=== PATIENT | female | born 1980 | race Caucasian/White ===

== ENCOUNTER 2016-09-19 18:52 | Emergency (ER) | payer OTHER ==
[2016-09-19 20:05] VITALS: BP 109/57
--- NOTE | 2016-09-19 20:31 | UC ---
Throat Pain/Nasal Henry HPI - HPI Summary HPI Summary: Nasal congestion starting about 2 days ago, ST since yesterday. 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 No fever, vomiting, cough, or rashes. - History of Current Complaint Chief Complaint: UCGeneralIllness Stated Complaint: SORE THROAT Time Seen by Provider: 09/19/16 20:09 Hx Obtained From: Patient Hx Last Menstrual Period: 09/18/16 ?: No Onset/Duration: Gradual Onset, Lasting Days Severity: Mild Cough: None Associated Signs & Symptoms: Positive: Nasal Discharge. Negative: Fever, Vomiting, Rash - Allergies/Home Medications Allergies/Adverse Reactions: Allergies Allergy/AdvReac Type Severity Reaction Status Date / Time No Known Allergies Allergy Verified 09/19/16 20:05 Home Medications: Home Medications Desipramine TAB* [Norpramin TAB*] 50 mg PO BEDTIME 09/19/16 [History Confirmed 09/19/16] PMH/Surg Hx/FS Hx/Imm Hx Respiratory History Of: Reports: Asthma - Surgical History Surgical History: None - Family History Known Family History: Positive: Respiratory Disease - Social History Occupation: Employed Full-time Alcohol Use: Occasionally Substance Use Type: None Smoking Status (MU): Never Smoked Tobacco Review of Systems Constitutional: Negative Skin: Negative Eyes: Negative ENT: Sore Throat, Nasal Discharge Respiratory: Negative Cardiovascular: Negative Gastrointestinal: Negative Genitourinary: Negative Motor: Negative Neurovascular: Negative Musculoskeletal: Negative Neurological: Negative Psychological: Negative All Other Systems Reviewed And Are Negative: Yes Physical Exam Triage Information Reviewed: Yes Appearance: Well-Appearing, No Pain Distress, Well-Nourished Vital Signs: Initial Vital Signs Temp 97.7 F 09/19/16 20:02 Pulse 89 09/19/16 20:02 Resp 16 09/19/16 20:02 BP 109/57 09/19/16 20:02 Pulse Ox 100 09/19/16 20:02 Vital Signs Reviewed: Yes Eye Exam: Normal Eyes: Positive: Conjunctiva Clear ENT: Positive: Pharyngeal erythema - injected, Nasal congestion, TMs normal. Negative: Tonsillar swelling, Tonsillar exudate Dental Exam: Normal Neck exam: Normal Neck: Positive: Supple, Nontender, No Lymphadenopathy Respiratory Exam: Normal Respiratory: Positive: Chest non-tender, Lungs clear, Normal breath sounds, No respiratory distress, No accessory muscle use Cardiovascular Exam: Normal Cardiovascular: Positive: RRR, No Murmur Musculoskeletal Exam: Normal Neurological Exam: Normal Psychological Exam: Normal Skin Exam: Normal Throat Pain/Nasal Course/Dx - Differential Dx/Diagnosis Provider Diagnoses: URI, likely viral Discharge - Discharge Plan Condition: Stable Disposition: HOME Patient Education Materials: Upper Respiratory Infection (ED) Referrals: Julianna Regan [Physician Technical Support Engineer] - If Needed Additional Instructions: Rapid strep negative. Call or return if you develop increasing fever, shortness of breath, chest pain , bloody sputum, or otherwise worsen. If you have not improved at all after several days, contact your primary care physician or return here.
== END 2016-09-19 20:30 | disposition home or self-care (01) ==
LOC: UCCORT 18:52
DX: J06.9 Acute upper respiratory infection, unspecified (principal)
CPT/HCPCS: 87651; 99211; G0463

== ENCOUNTER 2016-11-02 15:00 | Emergency (ER) | payer OTHER ==
[2016-11-02 16:45] VITALS: BP 119/64
--- NOTE | 2016-11-02 17:19 | UC ---
Respiratory Complaint HPI - HPI Summary HPI Summary: ONSET OVER A WEEK AGO WITH COLD SYMPTOMS. THREE DAYS AGO STARTED WITH SORE THROAT, PRODUCTIVE COUGH, LYARINGITIS. FEELS SOB WELL. HAS HX OF EXERCISE INDUCED ASTHMA. RAN OUT OF ALBUTEROL. CHILLS. NO FEVER. no sinus pain. doesnt feel like it's strep. no wheezing. cough feels tight. Here with her Sandhya. voice is diminished. - History of Current Complaint Chief Complaint: UC Stated Complaint: COUGH,SORE THROAT Time Seen by Provider: 11/02/16 16:39 Hx Last Menstrual Period: 10/10/16 - Allergies/Home Medications Allergies/Adverse Reactions: Allergies Allergy/AdvReac Type Severity Reaction Status Date / Time UNKNOW ALLERGEN Allergy Severe Anaphylatic Uncoded 11/02/16 16:38 Shock Home Medications: Home Medications traZODone TAB* [Desyrel TAB*] 300 mg PO BEDTIME 11/02/16 [History Confirmed ] PMH/Surg Hx/FS Hx/Imm Hx Previously Healthy: Yes Respiratory History Of: Reports: Asthma - Surgical History Surgical History: None - Family History Known Family History: Positive: Diabetes, Respiratory Disease - Social History Alcohol Use: Occasionally Substance Use Type: None Smoking Status (MU): Never Smoked Tobacco - Immunization History Most Recent Influenza Vaccination: FALL 2015 Review of Systems Constitutional: Negative Skin: Negative Eyes: Negative ENT: Other - loss of voice Respiratory: Cough Cardiovascular: Negative Gastrointestinal: Negative Genitourinary: Negative Motor: Negative Neurovascular: Negative Musculoskeletal: Negative Neurological: Negative Psychological: Negative All Other Systems Reviewed And Are Negative: Yes Physical Exam Triage Information Reviewed: Yes Appearance: No Pain Distress - sitting with blanket, voice is diminished, Well- Nourished Vital Signs: Initial Vital Signs Temp 97.8 F 11/02/16 16:38 Pulse 79 11/02/16 16:38 Resp 20 11/02/16 16:38 BP 119/64 11/02/16 16:38 Pulse Ox 100 11/02/16 16:38 Vital Signs Reviewed: Yes Eye Exam: Normal ENT: Positive: Pharynx normal - +PND, TMs normal, Muffled/hoarse voice, Other: - no sinus tenderness. Negative: Pharyngeal erythema, Tonsillar swelling, Tonsillar exudate Dental Exam: Normal Neck exam: Normal Neck: Positive: Supple, Nontender, No Lymphadenopathy Respiratory: Positive: Chest non-tender, Lungs clear, No respiratory distress, No accessory muscle use, Decreased breath sounds. Negative: Crackles, Rhonchi, Stridor, Wheezing Cardiovascular Exam: Normal Cardiovascular: Positive: RRR, No Murmur, Pulses Normal, Brisk Capillary Refill Abdominal Exam: Normal Abdomen Description: Positive: Nontender, Soft Musculoskeletal Exam: Normal Neurological Exam: Normal Psychological Exam: Normal Skin Exam: Normal UC Diagnostic Evaluation - Laboratory O2 Sat by Pulse Oximetry: 100 Respiratory Course/Dx - Course Course Of Treatment: laryngitis and diminished breath sounds. will benefit from prednisone which they are very agreeable with. We discusse risks of prednisone including but not limited to anxiety, agitation, insomnia, GI upset, elevated blood pressures and blood sugar readings, adrenal crisis and avascular necrosis of the hip. No evidence of any bacterial infection apparent at this time. - Differential Dx/Diagnosis Differential Diagnosis/HQI/PQRI: Asthma, Bronchitis, Laryngitis, Lower Resp Infection, Sinusitis Provider Diagnoses: laryngitis, bronchitis Discharge - Discharge Plan Condition: Stable Disposition: HOME Prescriptions: Albuterol HFA INHALER* [Ventolin HFA Inhaler*] 2 puff INH Q4H PRN #1 mdi PRN Reason: Cough Methylprednisolone [Medrol Dosepak 4 MG*] 4 mg PO DAILY #1 nick Patient Education Materials: Acute Bronchitis (ED), Laryngitis (ED) Referrals: Hina Montaño [Primary Care Provider] - 3 Days Additional Instructions: Lots of fluids and rest, especially voice rest. You can also use tylenol cold and sinus for any congestion.
== END 2016-11-02 17:28 | disposition home or self-care (01) ==
LOC: UCCORT 15:00
DX: J04.0 Acute laryngitis (principal); J40 Bronchitis, not specified as acute or chronic
CPT/HCPCS: 99212; G0463

== ENCOUNTER 2017-09-03 14:56 | Emergency (ER) | payer OTHER ==
--- NOTE | 2017-09-03 15:52 | UC ---
Nausea/Vomiting/Diarrhea HPI - HPI Summary HPI Summary: 37 year old female presents with severe RUQ pain. - History of Current Complaint Stated Complaint: VOMITTING,DIARRHEA Time Seen by Provider: 09/03/17 15:52 Hx Obtained From: Patient Hx Last Menstrual Period: 10/10/16 Onset/Duration: Sudden Onset Severity Initially: Moderate Severity Currently: Moderate Location: Discrete At: RUQ Character: Sharp, Cramping Aggravating Factor(s): Movement Alleviating Factor(s): Nothing - Allergies/Home Medications Allergies/Adverse Reactions: Allergies Allergy/AdvReac Type Severity Reaction Status Date / Time UNKNOW ALLERGEN Allergy Severe Anaphylatic Uncoded 09/03/17 15:59 Shock PMH/Surg Hx/FS Hx/Imm Hx Previously Healthy: Yes - Surgical History Surgical History: None - Family History Known Family History: Positive: Diabetes, Respiratory Disease - Social History Alcohol Use: Occasionally Substance Use Type: None Smoking Status (MU): Never Smoked Tobacco - Immunization History Most Recent Influenza Vaccination: FALL 2015 Review of Systems Constitutional: Negative Skin: Negative Eyes: Negative ENT: Negative Respiratory: Negative Cardiovascular: Negative Gastrointestinal: Abdominal Pain, Vomiting, Diarrhea, Nausea, Other - ruq pain Genitourinary: Negative Motor: Negative Neurovascular: Negative Musculoskeletal: Negative Neurological: Negative Psychological: Negative All Other Systems Reviewed And Are Negative: Yes Physical Exam Triage Information Reviewed: Yes Vital Signs Reviewed: Yes Eye Exam: Normal ENT Exam: Normal Dental Exam: Normal Neck exam: Normal Neck: Positive: 1 Respiratory Exam: Normal Cardiovascular Exam: Normal Abdomen Description: Positive: Splenomegaly - ruq pain Musculoskeletal Exam: Normal Neurological Exam: Normal Psychological Exam: Normal Skin Exam: Normal Naus/Vom/Diarrhea Course/Dx - Differential Dx/Diagnosis Provider Diagnoses: ruq pain Condition At Discharge: Stable Discharge - Discharge Plan Condition: Stable Disposition: OTHER Discharge Disposition Comment: patient suggested to go to the er for ruq pain Patient Education Materials: Acute Abdominal Pain (ED) Referrals: Hina Montaño [Primary Care Provider] - Additional Instructions: patient suggested to go to the er for ruq pain
[2017-09-03 16:02] VITALS: BP 104/54
== END 2017-09-03 16:06 ==
LOC: UCCORT 14:56
DX: R10.11 Right upper quadrant pain (principal)
CPT/HCPCS: 99212; G0463

== ENCOUNTER 2018-08-20 17:43 | Emergency (ER) | payer BC ==
[2018-08-20 18:17] VITALS: BP 108/64
--- NOTE | 2018-08-20 18:56 | UC ---
Throat Pain/Nasal Henry HPI - HPI Summary HPI Summary: Pt presents with c/o URI like symptoms, bilateral ear ache, ST nasal congestion , cough X 4-5 days. - History of Current Complaint Chief Complaint: UCRespiratory Stated Complaint: SORE THROAT, RIGHT EAR PAIN Time Seen by Provider: 08/20/18 18:06 Hx Obtained From: Patient Hx Last Menstrual Period: 08/11/18 ?: No Onset/Duration: Gradual Onset, Lasting Days, Still Present Severity: Moderate Pain Intensity: 7 Cough: Nonproductive Associated Signs & Symptoms: Positive: Nasal Discharge - Epiglottits Risk Factors Epiglottis Risk Factors: Negative - Allergies/Home Medications Allergies/Adverse Reactions: Allergies Allergy/AdvReac Type Severity Reaction Status Date / Time No Known Allergies Allergy Verified 08/20/18 18:17 Home Medications: Home Medications Ibuprofen TAB* [Advil TAB*] 600 mg PO Q6H PRN 08/20/18 [History Confirmed ] LORazepam [Ativan 1 MG TAB] 5 mg PO BEDTIME PRN 08/20/18 [History Confirmed ] Naltrexone TAB* 50 mg PO BEDTIME 08/20/18 [History Confirmed 08/20/18] Pindolol 10 mg PO BEDTIME 08/20/18 [History Confirmed 08/20/18] Venlafaxine ER (NF) [Effexor ER (NF)] 400 mg PO DAILY 08/20/18 [History Confirmed 08/20/18] traZODone TAB* [Desyrel TAB*] 300 mg PO BEDTIME 08/20/18 [History Confirmed ] PMH/Surg Hx/FS Hx/Imm Hx Previously Healthy: Yes - Surgical History Surgical History: Yes Surgery Procedure, Year, and Place: LEEP procedure - Family History Known Family History: Positive: Diabetes, Respiratory Disease - Social History Occupation: Employed Full-time Lives: With Family Alcohol Use: Occasionally Substance Use Type: None Smoking Status (MU): Never Smoked Tobacco Have You Smoked in the Last Year: No - Immunization History Most Recent Influenza Vaccination: FALL 2015 Review of Systems All Other Systems Reviewed And Are Negative: Yes Constitutional: Positive: Negative Skin: Positive: Negative Eyes: Positive: Negative ENT: Positive: Sore Throat, Ear Ache, Sinus Congestion Respiratory: Positive: Cough Cardiovascular: Positive: Negative Gastrointestinal: Positive: Negative Genitourinary: Positive: Negative Motor: Positive: Negative Neurovascular: Positive: Negative Musculoskeletal: Positive: Negative Neurological: Positive: Negative Psychological: Positive: Negative Is Patient Immunocompromised?: No Physical Exam Triage Information Reviewed: Yes Appearance: Ill-Appearing Vital Signs: Initial Vital Signs Temp 97.7 F 08/20/18 18:09 Pulse 70 08/20/18 18:09 Resp 15 08/20/18 18:09 BP 108/64 08/20/18 18:09 Pulse Ox 100 08/20/18 18:09 Vital Signs Reviewed: Yes Eye Exam: Normal ENT: Positive: Nasal congestion, TM bulging - bilateral Dental Exam: Normal Neck exam: Normal Respiratory Exam: Normal Cardiovascular Exam: Normal Musculoskeletal Exam: Normal Neurological Exam: Normal Psychological Exam: Normal Skin Exam: Normal Throat Pain/Nasal Course/Dx - Differential Dx/Diagnosis Differential Diagnosis/HQI/PQRI: Pharyngitis, Sinusitis, URI Provider Diagnosis: Viral syndrome, Acute pain of both ears Discharge - Sign-Out/Discharge Documenting (check all that apply): Patient Departure All imaging exams completed and their final reports reviewed: No Studies - Discharge Plan Condition: Stable Disposition: HOME Patient Education Materials: Decongestant/Expectorant (By mouth), Viral Syndrome (ED) Referrals: Hina Montaño [Primary Care Provider] - If Needed - Billing Disposition and Condition Condition: STABLE Disposition: Home
== END 2018-08-20 19:03 | disposition home or self-care (01) ==
LOC: UCCORT 17:43
DX: B34.9 Viral infection, unspecified (principal); H92.03 Otalgia, bilateral
CPT/HCPCS: 99211; G0463

== ENCOUNTER 2019-02-20 19:16 | Emergency (ER) | payer BC ==
--- OUTSIDE RECORDS SUMMARY | 2019-02-20 19:30 | XMS REPORT | Continuity of Care Document ---
:1980 External Reference #:[id number] Author Name Hina Montaño, RESEARCH PROGRAM COORDINATOR Address [address] [place] [address] Care Team Providers Name Role Phone Armando Montaño MD Care Team Information Manager Procurement Unavailable Payers Date Identification Numbers Payment Provider Subscriber Effective: 2018 Policy Number: [id number] [facility] Ppo Bruno Phillips PayID: [id number] [address] [address] [place] [address] Problems Active Problems Provider Date Multiple personality disorder Digiovanna, Hina, RESEARCH PROGRAM COORDINATOR Onset: 01/12/2019 Constipation Digiovanna, Hina, RESEARCH PROGRAM COORDINATOR Onset: 01/12/2019 Acne Digiovanna, Hina, RESEARCH PROGRAM COORDINATOR Onset: 01/12/2019 Allergic rhinitis Digiovanna, Hina, RESEARCH PROGRAM COORDINATOR Onset: 01/12/2019 Vitamin D deficiency Digiovanna, Hina, RESEARCH PROGRAM COORDINATOR Onset: 01/12/2019 Family History Date Family Member(s) Observation Comments Maternal Grandfather Cancer, Lung dx age 80 Social History Type Date Description Comments Sex Unknown Education Highest Level Completed Master's Degree Marital Status 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 ETOH Use Occasionally consumes alcohol Tobacco Use Start: Unknown Patient has never smoked Recreational Drug Use Denies Drug Use Smoking Status Reviewed: 01/22/19 Patient has never smoked Allergies, Adverse Reactions, Alerts Active Allergies Reaction Severity Comments Date NKDA 10/31/2017 Dust 12/20/2013 Cats 12/20/2013 Medications Active Medications SIG Qnty Indications Ordering Date Provider Trazodone HCL take two tablets F44.81 Digiovanna, 01/12/2019 100mg by mouth at [facility] Sant[facility] Tablets bedtime Bupropion 1 by mouth every 90tabs F44.81 Digiovanna, 01/12/2019 Hydrochloride ER (XL) am [facility] Santamaria 300mg Tablets ER 24HR Effexor XR 1 by mouth every 30caps F44.81 Digiovanna, 01/12/2019 150mg Caps day along with a [facility] Santamaria ER 24HR 75mg tab as well-325mg daily Albuterol Sulfate HFA Inhale 2 Puffs 42.5units J30.9 Manan Siddiqui, 01/12 By Mouth Every 4 DO 108(90Base) mcg/Act Hours as Needed Aerosol Vitamin D-3 1 by mouth every E55.9 Digiovanna, 01/12/2019 5000Unit day [facility] Santamaria Tablets Multivitamin Adult daily Digiovanna, 01/12/2019 [facility] Santamaria Tablets Magnesium 1 by mouth every 90tabs Digiovanna, 01/12/2019 400mg Tablets day at night [facility] Santamaria Epipen 2-Nithin use as directed 2units J30.9 Manan Siddiqui, 02/28/2015 for allergic DO 0.3mg/0.3ML Solution reaction Auto-Inject Alprazolam 1 by mouth daily F44.81 Unknown 0.5mg as needed for Tablets panic attack Effexor XR 1 by mouth every F44.81 Unknown 75mg Caps ER day along with a 24HR 150mg tab as well-325mg daily Gabitril 1 tab PO twice F44.81 Bezerganian, 4mg Tablets daily History Medications Tamiflu 1 by mouth once a 10caps Sabra, 12/23/2016 - 75mg Capsules day x10 days SHIRLEY Santamaria 01/02/2017 Fluticasone Propionate 1 spray each 1units J06.9 Sabra, 11/05/2016 - nostril daily SHIRLEY Santamaria 10/31/2017 50mcg/Act Suspension Singulair 1 By Mouth Daily 90tabs J30.9 Sabra, 03/08/2016 - 10mg Tablets SHIRLEY Santamaria 10/31/2017 Clindamycin Apply to affected 100gm L70.9 Manan Siddiqui, 05/23/2015 - Phos-Benzoyl Perox area daily, can DO 09/09/2016 1-5% increase to bid Gel Mirtazapine 1 po qhs 10tabs 300.14 Manan Siddiqui, 04/11/2015 - 7.5mg Tablets DO 05/23/2015 Ventolin HFA 2 puffs every 4 1units J30.9 Manan Siddiqui, 02/28/2015 - 108(90Base) hours as needed DO 01/12/2019 mcg/Act Aerosol Trazodone HCL take Two tablet Unknown - 100mg by mouth at 06/17/2016 Tablets bedtime Fina Fluoxetine HCL 80 mg every day F44.81 [place], - 20mg DR Darinel Cunha MD 10/31/2017 Tablets Bupropion HCL 1 by mouth a day Virginia Tena - 100mg 03/08/2016 Tablets Bupropion HCL ER one tab twice F44.81 Unknown - (Smoking Det) daily - 10/31/2017 150mg Lngbart Tablets ER 12HR Livaplex OTC Z68.30 Unknown - 10/31/2017 Hepatrophin Unknown - 06/17/2016 Adrenal Complx Z68.30 Unknown - 10/31/2017 Multizyme Z68.30 Unknown - 10/31/2017 Organically Bound Z68.30 Unknown - Minerals 10/31/2017 Adrenal Dessicated Unknown - 06/17/2016 Colax Digestion K59.00 Unknown - 10/31/2017 Seroquel 1 by mouth every 30tabs Manan Siddiqui, - 200mg Tablets night at bedtime DO 09/16/2016 Diazepam 1 by mouth twice F44.81 [place], - 5mg Tablets a day carisa Cunha MD 10/31/2017 Trazodone HCL 2 by mouth every F44.81 [place], - 150mg night at bedtime MD Alphonse 01/12/2019 Tablets Bupropion HCL ER (SR) 2 by mouth every F44.81 Unknown - day 01/12/2019 200mg Tablets ER 12HR Venlafaxine HCL 1 by mouth every Unknown - 100mg day 12/09/2018 Tablets Ativan 1 by mouth prn Unknown - 2mg Tablets 01/12/2019 Naltrexone HCL 1 by mouth every F44.81 Unknown - 50mg day 01/22/2019 Tablets Gabitril Take 1/2 tab by F44.81 Unknown - 12mg Tablets mouth bid 01/22/2019 Ventolin HFA 2 puffs every 4 1units Manan Siddiqui, - 108mcg/Act hours as needed DO 02/28/2015 Aerosol for cough or sob Epinephrine Unknown - 0.3mg/0.3ML 02/28/2015 Solution Auto-Inject [facility] Fiber Laxative take 1 tablet by Unknown - 625mg mouth bid 04/08/2016 Tablets Docusate Sodium & 2 PO bid Unknown - Senna Stimulant 02/28/2015 Laxative/Stool Softener 8.6-50mg Tablets Levocetirizine 1 po qd 30tabs Unknown - Dihydrochloride 02/28/2015 5mg Tablets Vitamin B-12 1 po qd Unknown - 1000mcg 08/30/2015 Tablets Sub Melatonin 1 po daily Unknown - 3mg Tablets 02/28/2015 Mirtazapine Unknown - 7.5mg Tablets 04/11/2015 Prazosin HCL Unknown - 1mg Capsules 02/28/2015 Bupropion HCL 1 by mouth in the Unknown - 100mg morning 02/28/2015 Tablets Vitamin B-6 1 by mouth every 30tabs Unknown - 100mg Tablets day 08/30/2015 Prazosin HCL 2 by mouth every Unknown - 2mg Capsules day 04/11/2015 Melatonin use as directed Unknown - 10mg Capsules at hs. 06/17/2016 Senna S 2 tab twice a day Unknown - Tablets 06/17/2016 Venlafaxine HCL ER 1 by mouth every Unknown - 75mg day 04/11/2015 Caps ER 24HR Vitamin D3 1 by mouth every Unknown - 5000Unit day 04/08/2016 Capsules Biotin 1 by mouth every Unknown - Tablets day 08/30/2015 Multi Adult Gummies 2 by mouth every Unknown - day 04/08/2016 Chewtabs Doxepin HCL 300.14 Unknown - 10mg Capsules 08/30/2015 Immunizations CPT Code Status Date Vaccine Reaction Lot # [id number] Given 09/11/2018 Flu Vaccine NOS Given at [facility], [address], [place] [address] Given 10/07/2016 Tdap (Adacel) Ages 7 And [id number] Above Only Q2037 Given 06/02/2016 Fluvirin Immunization Q2037 Given 05/11/2015 Fluvirin Immunization 30553 Given 05/11/2015 Influenza Vaccine Preservative Free 6-35 Months Of Age [address] Refused 10/31/2017 Influenza Vac, Quadrivalent, Split, 0.5mL Dosage, Im Use Vital Signs Date Vital Result Comment 01/22/2019 12:59pm Body Temperature 98.7 F tympanic Heart Rate 80 /min BP Systolic 130 mmHg BP Diastolic 76 mmHg Respiratory Rate 16 /min 01/12/2019 2:21pm Weight 192.38 lb Heart Rate 80 /min BP Systolic 118 mmHg BP Diastolic 68 mmHg Respiratory Rate 16 /min Height 62.75 inches 5'2.75" BMI (Body Mass Index) 34.3 kg/m2 10/31/2017 9:48am Weight 188.00 lb Heart Rate 72 /min BP Systolic 110 mmHg BP Diastolic 68 mmHg Respiratory Rate 14 /min Height 62.75 inches 5'2.75" BMI (Body Mass Index) 33.6 kg/m2 Last Menstrual Period [id number] 11/05/2016 9:53am Body Temperature 98.7 F Weight 178.00 lb Heart Rate 68 /min BP Systolic 108 mmHg BP Diastolic 70 mmHg Respiratory Rate 18 /min Height 62.75 inches 5'2.75"06/23 O2 % BldC Oximetry 100 % Ra BMI (Body Mass Index) 31.8 kg/m2 10/07/2016 10:01am Weight 172.00 lb Heart Rate 70 /min BP Systolic 118 mmHg BP Diastolic 72 mmHg Respiratory Rate 18 /min Height 62.75 inches 5'2.75"06/23 BMI (Body Mass Index) 30.7 kg/m2 06/17/2016 8:25am Weight 172.00 lb Heart Rate 74 /min BP Systolic 110 mmHg BP Diastolic 70 mmHg Respiratory Rate 18 /min Height 62.75 inches 5'2.75"06/23 BMI (Body Mass Index) 30.7 kg/m2 04/08/2016 1:10pm Weight 178.00 lb Heart Rate 68 /min BP Systolic 118 mmHg BP Diastolic 68 mmHg Respiratory Rate 18 /min Height 62.75 inches 5'2.75" BMI (Body Mass Index) 31.8 kg/m2 03/08/2016 8:43am Weight 182.00 lb Heart Rate 72 /min BP Systolic 120 mmHg BP Diastolic 72 mmHg Respiratory Rate 16 /min 12/08/2015 8:23am Heart Rate 74 /min BP Systolic 136 mmHg BP Diastolic 70 mmHg Respiratory Rate 18 /min Height 62.5 inches 5'2.50" 11/03/2015 12:58pm Weight 182.00 lb Heart Rate 72 /min BP Systolic 112 mmHg BP Diastolic 60 mmHg Respiratory Rate 18 /min 08/30/2015 8:28am Weight 182.00 lb Heart Rate 68 /min BP Systolic 112 mmHg BP Diastolic 68 mmHg Respiratory Rate 18 /min 05/23/2015 8:39am Weight 185.00 lb Heart Rate 72 /min BP Systolic 112 mmHg BP Diastolic 68 mmHg Respiratory Rate 18 /min 04/11/2015 1:12pm Weight 183.00 lb Heart Rate 60 /min BP Systolic 114 mmHg BP Diastolic 72 mmHg Respiratory Rate 18 /min Height 62.75 inches 5'2.75" (02/2015) BMI (Body Mass Index) 32.7 kg/m2 02/28/2015 8:24am Weight 184.00 lb Heart Rate 70 /min BP Systolic 118 mmHg BP Diastolic 62 mmHg Respiratory Rate 18 /min Height 62.75 inches 5'2.75" (02/2015) BMI (Body Mass Index) 32.9 kg/m2 08/29/2014 8:46am Weight 197.00 lb Heart Rate 68 /min BP Systolic 118 mmHg BP Diastolic 62 mmHg Respiratory Rate 17 /min Height 62.5 inches 5'2.50" (12/2013) 06/01/2014 9:01am Body Temperature 98.8 F Weight 185.00 lb Heart Rate 64 /min BP Systolic 126 mmHg BP Diastolic 70 mmHg Respiratory Rate 18 /min Height 62.5 inches 5'2.50" (12/2013) 04/27/2014 8:50am Weight 176.00 lb Heart Rate 64 /min BP Systolic 116 mmHg BP Diastolic 60 mmHg Respiratory Rate 18 /min Height 62.5 inches 5'2.50" (12/2013) 03/04/2014 8:35am Weight 181.00 lb Heart Rate 72 /min BP Systolic 102 mmHg BP Diastolic 68 mmHg Respiratory Rate 18 /min Height 62.5 inches 5'2.50" (12/2013) 12/20/2013 10:28am BP Systolic 116 mmHg laying, 108/70 sitting, 106/68 standing BP Diastolic 74 mmHg laying, 108/70 sitting, 106/68 standing 12/20/2013 10:28am Weight 184.00 lb Heart Rate 56 /min BP Systolic 128 mmHg BP Diastolic 70 mmHg Respiratory Rate 18 /min Height 62.5 inches 5'2.50" (12/2013) Results Test Date Facility Test Result H/L Range Note Arthritis 01/22/2019 [facility] Rheumatoid Factor <pending> Panel-FCMG Quant Esr-[facility]CMG <pending> CRP,High Sensitivity <pending> Uric Acid-FCMG <pending> Laboratory test finding 01/22/2019 [facility] Lyme Disease By PCR <pending> - RL Laboratory test finding 10/31/2017 [facility] Vitamin D 25 25 ng/mL Low 30- 100 1 Hydroxy TSH 1.71 uIU/mL 0.35-4.94 Magnesium 1.9 mg/dL 1.5-2.7 Basic (BMP) 10/31/2017 [facility] Sodium 138 mmol/L 135-146 2 Potassium 4.4 mmol/L 3.5-5.2 Chloride# 103 mmol/L 97-110 3 Carbon Dioxide 29 mmol/L 24-34 Glucose 90 mg/dL 70-105 BUN 12 mg/dL 6-26 Creatinine 0.8 mg/dL 0.5-1.4 Calcium 9.3 mg/dL 8.5-10.2 Non Cheryle Egfr >60 >60 4 Cheryle Egfr >60 >60 5 Anion Gap 6 mmol/L 5-15 6 CBC With Auto Diff 10/31/2017 [facility] WBC 5.2 K/uL 4.1-11.0 RBC 4.07 M/uL 4.00-5.40 Hemoglobin 13.0 gm/dL 12.0-16.0 Hematocrit 37.4 % 36.0-47.0 MCV 92.0 fL 80.0-97.0 MCH 31.9 pg 27.0-32.0 MCHC 34.7 g/dL 32.0-36.0 RDW 12.7 % 11.5-14.5 PLT Count 204 K/ul 140-400 MPV 8.2 FL 7.1-10.7 Neutrophil 63.9 % 35.0-75.0 Lymphocyte 25.7 % 16.0-52.0 Monocyte 8.4 % 2.0-10.0 Eosinophil 1.4 % 0.0-5.0 Basophil 0.6 % 0.0-4.0 Abs Neutrophils 3.3 K/uL 2.1-8.0 Abs Lymphocytes 1.3 K/uL 0.8-5.5 Abs Monocytes 0.4 K/uL 0.1-1.0 Abs Eosinophils 0.1 K/uL 0.0-0.5 Abs Basophils 0.0 K/uL 0.0-0.3 Laboratory test finding 11/03/2015 [facility] Vit D 1 25 Dihydroxy 65.6 7 Ebv Evaluation - 11/03/2015 [facility] Ebv Vca Igg @ POSITIVE (Neg) 8 Ebv Vca Igm @ NEGATIVE (Neg) Ebv Early Ag Igg @ NEGATIVE (Neg) Ebv Nuclear Ag Igg @ POSITIVE (Neg) 9 Celiac Disease Panel-RL 11/03/2015 [facility] Gliadin Peptide Iga 3 [arb'U] (<20) 10 Gliadin Peptide Igg 2 [arb'U] (<20) 11 Iga @ 95 mg/dL (71-374) Transglutaminase Iga 2 [arb'U] (<20) 12 Transglutaminase Igg 2 [arb'U] (<20) 13 Laboratory test finding 11/03/2015 [facility] Vitamin B12 858 pg/mL 180- 914 TSH 1.70 uIU/mL 0.35-4.94 Comprehensive Metabolic (CMP) 11/03/2015 [facility] Sodium 135 mmol/L 134- 142 Potassium 4.2 mmol/L 3.5-5.2 Chloride 104 mmol/L 97-109 Carbon Dioxide 26 mmol/L 24-34 Glucose 97 mg/dL 70-105 BUN 12 mg/dL 6-26 Creatinine 0.8 mg/dL 0.5-1.4 Calcium 8.9 mg/dL 8.5-10.2 Total Protein 6.8 g/dL 6.0-8.0 Albumin 4.2 g/dL 3.6-4.9 Globulin 2.6 g/dL 2.0-3.5 A/G Ratio 1.6 Ratio 1.0-2.2 Total Bilirubin 0.5 mg/dL 0.1-1.3 Alkaline Phosphatase 46 U/L 24-140 Alt 20 U/L 3-42 Ast 16 U/L 8-42 Anion Gap 9 mmol/L 6-14 Cheryle Egfr >60 >60 14 Non Cheryle Egfr >60 >60 15 [facility] K/uL 4.1-11.0 RBC 4.17 M/uL 4.00-5.40 Hemoglobin 13.1 gm/dL 12.0-16.0 Hematocrit 39.1 % 36.0-47.0 MCV 93.7 fL 80.0-97.0 MCH 31.4 pg 27.0-32.0 MCHC 33.5 g/dL 32.0-36.0 RDW 12.2 % 11.5-14.5 PLT Count 213 K/ul 140-400 Neutrophil 63.8 % 35.0-75.0 Lymphocyte 26.7 % 16.0-52.0 Monocyte 7.3 % 2.0-10.0 Eosinophil 1.3 % 0.0-5.0 Basophil 0.9 % 0.0-4.0 Abs Neutrophils 3.1 K/uL 2.1-8.0 Abs Lymphocytes 1.3 K/uL 0.8-5.5 Abmon 0.4 K/uL 0.1-1.0 Abs Eosinophils 0.1 K/uL 0.0-0.5 Abs Basophils 0.0 K/uL 0.0-0.3 Drugs Of Abuse-Urine 04/10/2015 [facility] Amphetamines ( Urine) Negative Screen 7 (315)- - Barbiturates (Urine) Negative Benzodiazepines (Urine) Negative Cannabinoids (Urine) Negative Cocaine Metabolite (Urine) Negative Methadone (Urine) Negative Opiates (Urine) Negative Urine Cutoffs * 16 Laboratory test finding 12/28/2013 [email or web address] Import Free T4 0.67 ng/dL Low 0.71-1.85 Rapid Plasma Reagin Nonreactive Nonreactive 17 Thyroid Stim Hormone 1.02 uIU/mL 0.49-4.67 LDL Cholesterol Profile 12/28/2013 [email or web address] Import Cholesterol 178 mg/dL 120-200 HDL Cholesterol 41 mg/dL 29-83 LDL-Cholesterol 110 mg/dL 62-185 Triglycerides 136 mg/dL 16-231 Laboratory test 12/26/2013 [email or web address] Import Amphetamines (Urine) Negative finding Barbiturates (Urine) Negative Benzodiazepines (Urine) Positive High Cannabinoids (Urine) Negative Cocaine Metabolite (Urine) Negative Methadone (Urine) Negative Opiates (Urine) Negative Please Note # 18 Urine Cutoffs * 19 Urine Screen 12/26/2013 [email or web address] Import Urine Bilirubin - Negative Negative Dipstick Urine Blood Negative Negative Urine Clarity Clear Clear Urine Color Yellow Yellow Urine Glucose - Dipstick Negative mg/dL Negative Urine Ketone Negative mg/dL Negative Urine Leuk Esterase Negative Negative Urine Nitrite - Dipstick Negative Negative Urine PH 6.0 Low 6.5-7.5 Urine Protein - Dipstick Negative mg/dL Negative Urine Specific [place] >=1.030 1.010-1.030 Urine Urobilinogen - Dipstick 0.2 E.U./dL 0.2-1.0 Laboratory test 12/26/2013 [facility] [employer] [facility] Import Acetaminophen < 2.0 ug/mL Low 10.0-30.0 20 finding Alb/Glob 1.1 ratio Albumin 3.7 g/dL 3.5-5.0 Alkaline Phosphatase 78 U/L 50-136 Anion Gap 14 mEq/L 8-16 BUN 6 mg/dL 5-23 BUN/Creat 10.0 ratio Bilirubin,Total 0.1 mg/dL Low 0.2-1.2 Calcium 8.2 mg/dL Low 8.5-10.1 Carbon Dioxide 22 mEq/L 18-29 Chloride 108 mmol/L High 98-107 Creatinine 0.6 mg/dL 0.5-1.4 Ethyl Alcohol 18.0 mg/dL 0.0- Globulin 3.3 g/dL 1.9-4.3 Glom Filtration Rate, Estimate >60 mL/min >60 Glucose 86 mg/dL 76-115 If >60 mL/min >60 21 Potassium 3.5 mmol/L 3.5-5.1 SGPT/Alt 31 U/L 30-65 Salicylate < 1.7 mg/dL Low 2.8-20.0 22 Sgot/Ast 19 U/L 16-40 Sodium 140 mmol/L 136-145 Total Protein 7.0 g/dL 6.3-8.0 CBS W/Automated Diff 12/26/2013 [facility] Import Bas% 0.3 % 0.0-1.1 Baso # 0.02 K/uL 0.0-0.1 Eo% 2.1 % 0.0-6.6 Eos # 0.12 K/uL 0.0-0.5 Hematocrit 36.4 % 36.0-46.1 Hemoglobin 12.3 gm/dL 11.6-15.8 Lymph # 2.44 K/uL 0.8-3.4 Lymph % 42.7 % 17.0-46.1 Mean Cell Volume 87.9 fl 80.9-99.0 Mean Corpuscular HGB 29.7 pg 25.9-32.7 Mean Corpuscular HGB Conc 33.8 g/dL 30.8-34.3 Mean Platelet Volume 10.5 fL 8.9-12.4 [place] # 0.46 K/uL 0.3-0.9 [place] % 8.0 % 4.3-13.2 Neut# 2.68 K/uL 1.0-7.0 Neut% 46.9 % 40.4-72.8 Platelet Count 219 K/uL 155-360 Red Blood Count 4.14 M/uL 3.90-5.40 Red Cell Distri Width %CV 13.2 % 11.7-14.4 Red Cell Distri Width SD 40.6 fl 3-47 White Blood Count 5.7 K/uL 3.1-10.7 1 Clinical Guidelines for recommended serum 25(OH)Vitamin D Deficient at less than 20 ng/mL Insufficient at 20 to <30 ng/mL Sufficient at 30-100 ng/mL Toxicity at greater than 100 ng/mL 2 Updated reference range on new analyzer 3 Updated reference range on new analyzer 4 Concerning GFR Guidelines: Normal function or mild renal disease, if clinically at risk: >/=60 mL/min Moderately decreased: 30-59 Severely decreased: 15-29 Renal failure: <15 Glomerular Filtration Rate (GFR) is estimated based on the MDRD equation, which assumes a steady state for creatinine as recommended by the National Kidney Disease Education Program in conjunction with the National Institutes of Health and the National Kidney Foundation. Clinical conditions in which it may be necessary to measure GFR by using clearance methods include extremes of age and body size, severe malnutrition or obesity, diseases of skeletal muscle, paraplegia or quadriplegia, vegetarian diet, rapidly changing kidney function, and calculation of the dose of potentially toxic drugs that are excreted by the kidneys. 5 Concerning GFR Guidelines for Americans: Normal function or mild renal disease, if clinically at risk: >/=60 mL/min Moderately decreased: 30-59 Severely decreased: 15-29 Renal failure: <15 6 Updated Reference Range -2017 7 Reference range: 19.9 to 79.3 Unit: pg/mL INTERPRETIVE INFORMATION: Vitamin D, 1,25-Dihydroxy This test is primarily indicated during patient evaluation for hypercalcemia and renal failure. A normal result does not rule out Vitamin D deficiency. The recommended test for diagnosing Vitamin D deficiency is Vitamin D 25-hydroxy. Performed by [facility], [address] [place] [id number] [email or web address], Ruel Gavin MD, Lab. Director Unless otherwise specified, testing performed by [facility] [address] [place] [address] 8 May indicate a current or previous infection. 9 May indicate a current or previous infection. Unless otherwise specified, testing performed by [facility] [address] [place] [id number] 10 INTERPRETATION OF RESULTS: < 20 UNITS NEGATIVE 20-30 UNITS WEAK POSITIVE > 30 UNITS MODERATE TO STRONG POSITIVE The following result was obtained with the [employer] QUANTA Lite Gliadin IgA II. Results obtained with other manufacturers' assay methods may not be used interchangeably. The magnitude of the reported IgA level cannot be correlated to an endpoint titer. 11 INTERPRETATION OF RESULTS: < 20 UNITS NEGATIVE 20-30 UNITS WEAK POSITIVE > 30 UNITS MODERATE TO STRONG POSITIVE The following result was obtained with the [employer] QUANTA Lite Gliadin IgG II. Results obtained with other manufacturers' assay methods may not be used interchangeably. The magnitude of the reported IgG levels cannot be correlated to an endpoint titer. 12 INTERPRETATION OF RESULTS: < 20 UNITS NEGATIVE 20-30 UNITS WEAK POSITIVE > 30 UNITS MODERATE TO STRONG POSITIVE The following result was obtained with the [employer] QUANTA Lite h-tTG IgA ZAID. Results obtained with other manufacturers' assay methods may not be used interchangeably. The magnitude of the reported IgA level cannot be correlated to an endpoint titer. Performed at [address] [place] [address] 13 INTERPRETATION OF RESULTS: < 20 UNITS NEGATIVE 20-30 UNITS WEAK POSITIVE > 30 UNITS MODERATE TO STRONG POSITIVE The following result was obtained with the [employer] QUANTA Lite h-tTG IgG ZAID. Results obtained with other manufacturers' assay methods may not be used interchangeably. The magnitude of the reported IgG levels cannot be correlated to an endpoint titer. Performed at [address] [place] [address] Unless otherwise specified, testing performed by [facility] [address] [place] [id number] 14 Concerning GFR Guidelines for Americans: Normal function or mild renal disease, if clinically at risk: >/=60 mL/min Moderately decreased: 30-59 Severely decreased: 15-29 Renal failure: <15 15 Concerning GFR Guidelines: Normal function or mild renal disease, if clinically at risk: >/=60 mL/min Moderately decreased: 30-59 Severely decreased: 15-29 Renal failure: <15 Glomerular Filtration Rate (GFR) is estimated based on the MDRD equation, which assumes a steady state for creatinine as recommended by the National Kidney Disease Education Program in conjunction with the National Institutes of Health and the National Kidney Foundation. Clinical conditions in which it may be necessary to measure GFR by using clearance methods include extremes of age and body size, severe malnutrition or obesity, diseases of skeletal muscle, paraplegia or quadriplegia, vegetarian diet, rapidly changing kidney function, and calculation of the dose of potentially toxic drugs that are excreted by the kidneys. 16 *THE SUBMITTED URINE SPECIMEN WAS SCREENED AT THE LISTED CUTOFFS DRUG CLASS INITIAL TEST LEVEL Amphetamines 1000 ng/mL Barbiturates 200 ng/mL Benzodiazepines 200 ng/mL Cannabinoids 50 ng/mL Cocaine Metabolite 300 ng/mL Methadone 300 ng/mL Opiates 300 ng/mL 17 PENDING; TEST PERFORMED ON MONDAYS AND THURSDAYS 18 #THIS URINE SPECIMEN SCREENED POSITIVE FOR ONE OF MORE DRUG CLASSES. POSITIVE FINDINGS ARE UNCONFIRMED. CONFIRMATORY TESTING IS SUGGESTED IF FINDINGS ARE UNEXPECTED. PLEASE CONTACT THE LABORATORY IF CONFIRMATORY TESTING IS DESIRED. 19 *THE SUBMITTED URINE SPECIMEN WAS SCREENED AT THE LISTED CUTOFFS DRUG CLASS INITIAL TEST LEVEL Amphetamines 1000 ng/mL Barbiturates 200 ng/mL Benzodiazepines 200 ng/mL Cannabinoids 50 ng/mL Cocaine Metabolite 300 ng/mL Methadone 300 ng /mL Opiates 300 ng/mL 20 POTENTIAL TOXICITY VARIES WITH TIME FROM INGESTION. PLEASE CONSULT APPROPRIATE NOMOGRAM. 21 Note: Persistent reduction for 3 months or more in an eGFR <60 mL/min/1.73 m2 defines CKD. Patients with eGFR values >/=60 mL/min/1.73 m2 may also have CKD if evidence of persistent proteinuria is present. The original MDRD equation for estimated GFR is not valid for patients less than 18 years of age. Additional information may be found at www.kdoqi.org. 22 ARTHRITIC THERAPEUTIC RANGE: 15-30 mg/dL POTENTIAL TOXICITY VARIES WITH TIME FROM INGESTION. PLEASE CONSULT APPROPRIATE NOMOGRAM. 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, RESEARCH PROGRAM COORDINATOR disorder K59.00 Constipation, unspecified L70.9 Acne, unspecified J30.9 Allergic rhinitis, unspecified E55.9 Vitamin D deficiency, unspecified Z68.34 Body mass index (BMI) 34.0-34.9, adult Office Visit 10/31/2017 9:45a PSYCHIATRIC Hina Montaño, F44.81 Dissociative identity RESEARCH PROGRAM COORDINATOR disorder K59.00 Constipation, unspecified Office Visit 11/05/2016 9:45a PSYCHIATRIC Hina Montaño, J06.9 Acute upper RESEARCH PROGRAM COORDINATOR respiratory infection, unspecified Office Visit 10/07/2016 10:00a PSYCHIATRIC Hina Montaño, Z23 Encounter for RESEARCH PROGRAM COORDINATOR immunization J30.9 Allergic rhinitis, unspecified F44.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 L70.9 Acne, unspecified K59.00 Constipation, unspecified Z68.30 Body mass index (BMI) 30.0-30.9, adult Office Visit 06/17/2016 8:30a PSYCHIATRIC Julianna Ko PA J30.9 Allergic rhinitis, unspecified F44.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 R21 Rash and other nonspecific skin eruption Office Visit 04/08/2016 1:15p PSYCHIATRIC Julianna Ko, Z72.4 Inappropriate diet and PA eating habits Office Visit 03/08/2016 8:45a PSYCHIATRIC Julianna Ko, F44.81 Dissociative identity PA disorder J30.9 Allergic rhinitis, unspecified Z72.4 Inappropriate diet and eating habits Office Visit 12/08/2015 8:30a PSYCHIATRIC Julianna Ko, F44.81 Dissociative identity PA disorder R53.83 Other fatigue J45.20 Mild intermittent asthma, uncomplicated Office Visit 11/03/2015 1:00p [facility] Julianna Ko, PA R53.83 Other fatigue R10.11 RIGHT upper quadrant pain Office Visit 08/30/2015 8:30a [facility] Julianna Ko, F44.81 Dissociative identity PA disorder L70.9 Acne, unspecified Office Visit 05/23/2015 8:30a [facility] Julianna Ko, 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 706.1 Acne Other Office Visit 04/11/2015 1:15p [facility] Julianna Ko, 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
[2019-02-20 19:44] VITALS: BP 111/62
[2019-02-20] MEDS ORDERED: Albuterol/Ipratropium NEB.SOL* Albuterol 2.5 MG/Ipratropium 0.5 MG 3 ML INH ONE (19:47)
--- NOTE | 2019-02-20 19:53 | UC ---
Respiratory Complaint HPI - HPI Summary HPI Summary: CONSTANT COUGH FOR OVER A WEEK, NON PRODUCTIVE, RUNNY NOSE. PT HAS ASTHMA, FOR THE PAST THREE DAYS HAS FELT WHEEZY AND CHEST TIGHTNESS. ALBUTEROL INHALER IS NOT HELPING. HAS A NEBULIZER AT HOME BUT NO MEDICATION FOR IT - History of Current Complaint Chief Complaint: UCRespiratory Stated Complaint: COUGH,ASTHMA Time Seen by Provider: 02/20/19 19:47 Hx Obtained From: Patient Hx Last Menstrual Period: 02/02/19 ?: No Onset/Duration: Sudden Onset, Lasting Weeks Timing: Constant Severity Initially: Mild Severity Currently: Moderate Pain Intensity: 0 Character: Cough: Nonproductive Aggravating Factors: Allergens, Deep Breaths, Recumbent Position Alleviating Factors: Nothing Associated Signs And Symptoms: Positive: Wheezing, URI - Allergies/Home Medications Allergies/Adverse Reactions: Allergies Allergy/AdvReac Type Severity Reaction Status Date / Time UNKNOW ALLERGEN Allergy Severe Anaphylatic Uncoded 02/20/19 19:37 Shock Home Medications: Home Medications ALPRAZolam TAB* [Xanax TAB*] 0.5 mg PO TID PRN 02/20/19 [History Confirmed 02/20] PMH/Surg Hx/FS Hx/Imm Hx Previously Healthy: Yes - Surgical History Surgical History: Yes Surgery Procedure, Year, and Place: LEEP procedure - Family History Known Family History: Positive: Diabetes, Respiratory Disease - Social History Alcohol Use: Occasionally Substance Use Type: None Smoking Status (MU): Never Smoked Tobacco Have You Smoked in the Last Year: No - Immunization History Most Recent Influenza Vaccination: FALL 2015 Review of Systems All Other Systems Reviewed And Are Negative: Yes Respiratory: Positive: Shortness Of Breath, Cough Physical Exam Triage Information Reviewed: Yes Appearance: Well-Appearing, Well-Nourished, Pain Distress Vital Signs: Initial Vital Signs Temp 99 F 02/20/19 19:38 Pulse 80 02/20/19 19:38 Resp 28 02/20/19 19:38 BP 111/62 02/20/19 19:38 Pulse Ox 98 02/20/19 19:38 Vital Signs Reviewed: Yes Eye Exam: Normal ENT: Positive: Pharyngeal erythema Dental Exam: Normal Neck exam: Normal Respiratory: Positive: Chest non-tender, No accessory muscle use, Respiratory distress, Wheezing, Inspiration Cardiovascular Exam: Normal Cardiovascular: Positive: RRR, No Murmur, Pulses Normal Abdominal Exam: Normal Abdomen Description: Positive: Nontender, No Organomegaly, Soft Bowel Sounds: Positive: Present Musculoskeletal Exam: Normal Neurological Exam: Normal Psychological Exam: Normal Skin Exam: Normal Respiratory Course/Dx - Course Course Of Treatment: hx obtained, exam performed, meds reviewed, duo neb given, refill of albuterol prescribed. - Differential Dx/Diagnosis Differential Diagnosis/HQI/PQRI: Asthma, Bronchitis Provider Diagnosis: Asthma, Bronchospasm Discharge - Sign-Out/Discharge Documenting (check all that apply): Patient Departure All imaging exams completed and their final reports reviewed: No Studies - Discharge Plan Condition: Stable Disposition: HOME Patient Education Materials: Bronchospasm (ED) Referrals: Hina Montaño [Primary Care Provider] - Additional Instructions: 1. use the medication as prescribed. 2. follow up if not responding to the medication - Billing Disposition and Condition Condition: STABLE Disposition: Home
== END 2019-02-20 20:10 | disposition home or self-care (01) ==
LOC: UCCORT 19:16
DX: J45.909 Unspecified asthma, uncomplicated (principal)
CPT/HCPCS: 99212; A9270-GY; G0463

== ENCOUNTER 2019-03-08 20:16 | Emergency (ER) | payer BC ==
[2019-03-08 21:25] VITALS: BP 108/62
[2019-03-08] MEDS ORDERED: Amoxicillin/Clavulanate TAB* 875 MG PO ONE (21:49)
[2019-03-08] MEDS ORDERED: Tetan/Diph/Pertus SYR(Tdap)* 0.5 ML SYR(BOOSTRIX) use SYR IM ONE (21:49)
--- NOTE | 2019-03-08 21:49 | UC ---
General HPI - HPI Summary HPI Summary: pt has a pitbull puppy that is deaf. the puppy ran up to a fence at another dog so she grabbed him from behind. she states the puppy got startled and bit her on the L hand. puppy is utd on rabies. 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 no fb sensation, limited rom or bony tenderness. last tetanus is not known. - History of Current Complaint Chief Complaint: UCWounds Stated Complaint: DOG BITE Time Seen by Provider: 03/08/19 21:43 Hx Obtained From: Patient Hx Last Menstrual Period: currently Onset/Duration: Sudden Onset Pain Intensity: 3 Associated Signs & Symptoms: Negative: Fever - Allergy/Home Medications Allergies/Adverse Reactions: Allergies Allergy/AdvReac Type Severity Reaction Status Date / Time UNKNOW ALLERGEN Allergy Severe Anaphylatic Uncoded 02/20/19 19:37 Shock PMH/Surg Hx/FS Hx/Imm Hx Psychological History: Anxiety, Depression - Surgical History Surgical History: Yes Surgery Procedure, Year, and Place: LEEP procedure - Family History Known Family History: Positive: Diabetes, Respiratory Disease - Social History Alcohol Use: Weekly Substance Use Type: None Smoking Status (MU): Never Smoked Tobacco Have You Smoked in the Last Year: No - Immunization History Most Recent Influenza Vaccination: FALL 2015 Most Recent Tetanus Shot: unknown Review of Systems All Other Systems Reviewed And Are Negative: No Constitutional: Negative: Fever Musculoskeletal: Negative: Decreased ROM Neurological: Negative: Weakness, Paresthesia, Numbness Physical Exam Triage Information Reviewed: Yes Appearance: Well-Appearing Vital Signs: Initial Vital Signs Temp 98.6 F 03/08/19 21:19 Pulse 74 03/08/19 21:19 Resp 18 03/08/19 21:19 BP 108/62 03/08/19 21:19 Pulse Ox 100 03/08/19 21:19 Vital Signs Reviewed: Yes Eyes: Positive: Conjunctiva Clear Respiratory: Positive: No respiratory distress Cardiovascular: Positive: RRR Musculoskeletal: Positive: Other: - L hand: 2 pw's volar surface and 3 pw's dorsal surface. no erythema or swelling. no active bleeding. no bony deformity or tenderness. hand has full s/v/m function. Course/Dx - Course Course Of Treatment: nursing irrigated wounds with sterile nacl then pt washed hands with soap and water. - Diagnoses Provider Diagnosis: Dog bite of hand Discharge - Sign-Out/Discharge Documenting (check all that apply): Patient Departure All imaging exams completed and their final reports reviewed: No Studies - Discharge Plan Condition: Stable Disposition: HOME Prescriptions: Amoxicillin/Clavulanate TAB* [Augmentin TAB 875*] 875 mg PO BID 10 Days #20 tab Patient Education Materials: Animal Bite (ED) Referrals: Hina Montaño [Primary Care Provider] - 5 Days - Billing Disposition and Condition Condition: STABLE Disposition: Home - Attestation Statements Provider Attestation: Per institutional requirements, I have reviewed the chart, however, I was not consulted specifically or made aware of this patient by the midlevel provider. I did not personally evaluate, interact with , or disposition this patient.
== END 2019-03-08 22:20 | disposition home or self-care (01) ==
LOC: UCCORT 20:16
DX: S61.452A Open bite of left hand, initial encounter (principal); W54.0XXA Bitten by dog, initial encounter; Y93.89 Activity, other specified; Y92.9 Unspecified place or not applicable
CPT/HCPCS: 90471; 90715; 99212; A9270-GY; G0463

== ENCOUNTER 2019-05-31 12:47 | Emergency (ER) | payer BC ==
[2019-05-31] MEDS ORDERED: predniSONE TAB* 20 MG PO ONE (12:58)
[2019-05-31] MEDS ORDERED: Famotidine TAB* 20 MG PO ONE (12:58)
[2019-05-31] MEDS ORDERED: diPHENhydraMINE PO* 25 MG PO ONE (12:58)
--- NOTE | 2019-05-31 12:59 | ED ---
Allergic Reaction/Systemic - HPI Summary HPI Summary: This pt is a 39 y/o female presenting to [facility] via EMS for possible allergic reaction today. Pt reports she ate a P3 protein snack today which includes almonds. However, pt notes she eats nuts all the time. 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 She also notes she had difficulty breathing. She reports the last time she had anaphylactic reaction was 8 years ago during an allergy test, which she couldn't finish due to her reaction. Pt currently denies SOB, lip swelling, throat tightening, pruritus, hives, tongue swelling. Currently pt notes feeling back to normal and denies any symptoms. She notes she carries 2 epi pens at all times because she does not know what she is allergic to. Pt did not use an epi pen today. PMHx: Raynaud's. - History of Current Complaint Time Seen by Provider: 05/31/19 12:50 Hx Obtained From: Patient Hx Last Menstrual Period: currently Onset/Duration: Sudden Onset, Resolved Timing: Constant Severity Initially: Mild Severity Currently: None Pain Intensity: 0 Pain Scale Used: 0-10 Numeric Aggravating Factor(s): Nothing Alleviating Factor(s): Nothing Associated Signs And Symptoms: Positive: Lightheadedness, Other: - POSITIVE: tongue tingling, tongue swelling. NEGATIVE: lip sweling, hives. Negative: Difficulty Breathing, Rash, Throat Tightening - Allergies/Home Medications Allergies/Adverse Reactions: Allergies Allergy/AdvReac Type Severity Reaction Status Date / Time UNKNOW ALLERGEN Allergy Severe Anaphylatic Uncoded 02/20/19 19:37 Shock PMH/Surg Hx/FS Hx/Imm Hx Endocrine/Hematology History: Denies: Hx Diabetes Cardiovascular History: Reports: Other Cardiovascular Problems/Disorders - Raynaud's Denies: Hx Hypertension Respiratory History: Reports: Hx Asthma - excersice induced - Surgical History Surgical History: Yes Surgery Procedure, Year, and Place: LEEP procedure - Family History Known Family History: Positive: Hypertension, Diabetes, Respiratory Disease Family History: Dyslipidemia. - Social History Alcohol Use: Weekly Substance Use Type: Reports: None Smoking Status (MU): Never Smoked Tobacco Have You Smoked in the Last Year: No Review of Systems Negative: Fever ENT: Other - POSITIVE: tongue tingling, tongue swelling Negative: Other - NEGATIVE: throat tightening Negative: Shortness Of Breath Negative: Rash, Other - NEGATIVE: pruritus Neurological: Other - POSITIVE: lightheadedness Positive: Weakness All Other Systems Reviewed And Are Negative: Yes Physical Exam - Summary Physical Exam Summary: VITAL SIGNS: Reviewed. GENERAL: Patient is a well-developed and nourished female who is lying comfortable in the stretcher. Patient is not in any acute respiratory distress. HEAD AND FACE: No signs of trauma. No ecchymosis, hematomas or skull depressions. No sinus tenderness. EYES: PERRLA, EOMI x 2, No injected conjunctiva, no nystagmus. EARS: Hearing grossly intact. Ear canals and tympanic membranes are within normal limits. MOUTH: Oropharynx within normal limits. NECK: Supple, trachea is midline, no adenopathy, no JVD, no carotid bruit, no c- spine tenderness, neck with full ROM. CHEST: Symmetric, no tenderness at palpation LUNGS: Clear to auscultation bilaterally. No wheezing or crackles. CVS: Regular rate and rhythm, S1 and S2 present, no murmurs or gallops appreciated. ABDOMEN: Soft, non-tender. No signs of distention. No rebound no guarding, and no masses palpated. Bowel sounds are normal. EXTREMITIES: FROM in all major joints, no edema, no cyanosis or clubbing. NEURO: Alert and oriented x 3. No acute neurological deficits. Speech is normal and follows commands. SKIN: Dry and warm Triage Information Reviewed: Yes Vital Signs Reviewed: Yes Allergic Reaction Course/Dx - Course Assessment/Plan: In the ED course the patient is asymptomatic. She denies any swelling of the tongue, swelling of the lips, shortness of breath or feeling that her throat is closing. She reports mild itching but otherwise normal. Patient was given Benadryl and Pepcid. The patient was observed for a couple hours in the ED and the symptoms did not return. Therefore the patient will be discharged home with follow-up from her PCP. Patient is hemodynamically stable alert and oriented 3. Pt was given prescriptions for Benadryl and Prednisone. - Diagnoses Provider Diagnoses: Allergic reaction Discharge ED - Sign-Out/Discharge Documenting (check all that apply): Patient Departure - Discharge home Patient Received Moderate/Deep Sedation with Procedure: No - Discharge Plan Condition: Stable Disposition: HOME Prescriptions: diPHENhydraMINE PO* [Benadryl PO 25 MG TAB*] 25 mg PO TID PRN #30 tab PRN Reason: Allergy Symptoms predniSONE [Prednisone 20 MG TAB] 20 mg PO DAILY #4 tablet Patient Education Materials: General Allergic Reaction (ED) Referrals: Hina Montaño [Nurse Practitioner] - Additional Instructions: Please follow up with primary care provider in 2-3 days. RETURN TO THE EMERGENCY DEPARTMENT FOR ANY WORSENING OR NEW SYMPTOMS. - Billing Disposition and Condition Condition: STABLE Disposition: Home - Attestation Statements Document Initiated by Omar: Yes Documenting Scribe: Sydnie Lucas Provider For Whom Omar is Documenting (Include Credential): Mt Weinstein MD Scribe Attestation: Sydnie Marin scribed for Mt Weinstein MD on 05/31/19 at 2139. Scribe Documentation Reviewed: Yes Provider Attestation: The documentation as recorded by the Sydnie barker accurately reflects the service I personally performed and the decisions made by Mt prieto MD Status of Scribe Document: Viewed
--- OUTSIDE RECORDS SUMMARY | 2019-05-31 13:34 | XMS REPORT | Continuity of Care Document ---
:1980 External Reference #:[id number] Author Name Mirna Saleem MD (transmitted by agent of provider Roberta Brewer) Address [address] , [address] [place] [address] Care Team Providers Name Role Phone Mirna Saleem M.D. - Family Medicine Care Team Information Survey Associate Problems Description No Information Available Social History Type Date Description Comments Sex Unknown ETOH Use Currently consumes 15-21 shots of a week alcohol binge drinking every otherweekend Tobacco Use Start: Unknown Patient has never smoked Smoking Status Reviewed: 05/28/19 Patient has never smoked Allergies, Adverse Reactions, Alerts Active Allergies Reaction Severity Comments Date Environmental Allergies Moderate 05/28/2019 Medications Active Medications SIG Qnty Indications Ordering Date Provider Bupropion 1 by mouth twice a Unknown Hydrochloride ER (SR) day 150mg Tablets ER 12HR Trazodone HCL take 2 tablet by Unknown 100mg mouth every night Tablets at bedtime Venlafaxine HCL ER 1 by mouth every Unknown 150mg day in am w/ 75mg Caps ER 24HR caps Venlafaxine HCL ER 1 by mouth every Unknown 75mg day in am (with Caps ER 24HR 150 mg cap) Xanax 0.5 pill as needed. Unknown 0.5mg Tablets Multivitamin Adult 2 by mouth every Unknown day Chewtabs Magnesium Oxide 1 by mouth in PM Unknown 400mg Capsules Tiagabine HCL 2 tabs PO daily Unknown 4mg Tablets Ventolin HFA 1 to 2 inhalations Unknown 108(90Base) every 4 hours as mcg/Act Aerosol needed Immunizations Description No Information Available Vital Signs Date Vital Result Comment 05/28/2019 3:10pm Height 63 inches 5'3" Weight 200.50 lb Heart Rate 85 /min BP Systolic Sitting 106 mmHg Rue reg cuff BP Diastolic Sitting 60 mmHg Rue reg cuff O2 % BldC Oximetry 99 % BMI (Body Mass Index) 35.5 kg/m2 Results Description No Information Available Procedures Description No Information Available Medical Devices Description No Information Available Encounters Description No Information Available Assessments Date Code Description Provider 05/28/2019 Z00.00 Encounter for general adult medical examination Mirna Saleem MD without abnormal findings 05/28/2019 M25.551 Pain in right hip Mirna Saleem MD 05/28/2019 F50.9 Eating disorder, unspecified Mirna Saleem MD Plan of Treatment Future Appointment(s):05/30/2020 2:20 pm - Mirna Saleem MD at [facility] - [facility]05/28/2019 - Mirna Saleem MDZ00.00 Encounter for general adult medical examination without abnormal findingsComments:You are up to date with cervical cancer screening. 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 pt will bring recent films to visit [address] [facility] [place] [address] [place] [address] [phone]
[2019-05-31 15:16] VITALS: BP 134/79
== END 2019-05-31 15:15 | disposition home or self-care (01) ==
LOC: ED 12:47
DX: T78.40XA Allergy, unspecified, initial encounter (principal); X58.XXXA Exposure to other specified factors, initial encounter; Y92.9 Unspecified place or not applicable; I73.00 Raynaud's syndrome without gangrene
CPT/HCPCS: 99282; A9270-GY; J7512

== ENCOUNTER 2020-12-17 16:10 | Observation (INO) ==
[2020-12-17 16:44] LABS: ABS Eosinophils 0.1 10^3/ul (0-0.6); ABS Lymphocytes 1.6 10^3/ul (1.0-4.8); ABS Monocytes 0.4 10^3/ul (0-0.8); ABS Neutrophils 3.9 10^3/ul (1.5-7.7); Eosinophil % 1.6 %; Hematocrit 35 % (35-47); Lymphocyte % 26.8 %; Mean Corpuscular HGB Conc 34 g/dL (31-36); Mean Corpuscular Hemoglobin 30 pg (27-31); Mean Corpuscular Volume 89 fL (80-97); Mean Platelet Volume 8.2 fL (7.4-10.4); Platelet Count 197 10^3/uL (150-450); Red Blood Count 3.94 10^6 /uL (3.70-4.87); Red Cell Distribution Width 13 % (10-15); White Blood Count 6.1 10^3/uL (3.5-10.8)
[2020-12-17 16:55] LABS: ALT 21 U/L (7-52); AST 17 U/L (13-39); Albumin 3.9 g/dL (3.2-5.2); Albumin/Globulin Ratio 1.5 (1-3); Alkaline Phosphatase 60 U/L (34-104); Anion Gap 5 mmol/L (2-11); BUN/Creatinine Ratio 11.4 (8-20); Blood Urea Nitrogen 8 mg/dL (6-24); CO2 Carbon Dioxide 25 mmol/L (22-32); Calcium 8.7 mg/dL (8.6-10.3); Chloride 107 mmol/L (101-111); EGFR African American 112.7 (>60); EGFR Non-African American 93.2 (>60); Globulin 2.6 g/dL (2-4); Glucose 114 mg/dL (70-100); Potassium 3.9 mmol/L (3.5-5.0); Sodium 137 mmol/L (135-145); Total Protein 6.5 g/dL (6.4-8.9)
[2020-12-17 17:22] LABS: Acetaminophen < 15 mcg/mL; Alcohol, S < 10 mg/dL (<10); Salicylate < 2.50 mg/dL (<30)
[2020-12-17] MEDS ORDERED: NS 0.9% 1000 ml BAG 1,000 ML IV ONE ×2 (17:40)
[2020-12-17 21:27] LABS: Urine Appearance Clear; Urine Bilirubin Negative (Negative); Urine Blood Negative (Negative); Urine Color Straw; Urine Glucose Negative (Negative); Urine Ketones Negative (Negative); Urine Nitrite Negative (Negative); Urine Protein Negative (Negative); Urine Specific Gravity 1.006 (1.002-1.030); Urine Urobilinogen Negative (Negative)
[2020-12-17 21:32] LABS: Urine Benzodiazepine Screen Presumptive Positive (None Detect); Urine Cannabinoids Screen None Detected (None Detect); Urine Opiates Screen None Detected (None Detect)
[2020-12-18] MEDS ORDERED: Venlafaxine XR 75 mg PO SCH (10:00)
[2020-12-18] MEDS ORDERED: Venlafaxine XR 75 mg PO ONE (11:36)
[2020-12-18 17:24] VITALS: BP 124/67
[2020-12-19] MEDS ORDERED: Venlafaxine XR 75 mg PO SCH (09:00)
== END 2020-12-18 16:09 | disposition home or self-care (01) ==
LOC: MEDTELE 16:10 → ED 16:10 → MEDTELE 22:30
PROVIDERS: ADMIT Internal Medicine; ATTEND Internal Medicine